=== PATIENT | male | born 1950 | race Caucasian/White ===

== ENCOUNTER 2018-08-27 06:38 | Day surgery (SDC) | payer MEDICARE ==
[2018-08-27] MEDS ORDERED: MIDAZOLAM HCL 2MG/2ML VIAL IV ONE (06:39)
[2018-08-27] MEDS ORDERED: LIDOCAINE 2% MDV (20MG/ML) 20ML VIAL IV ONE (06:39)
[2018-08-27] MEDS ORDERED: FENTANYL PF 100MCG/2ML VIAL IV ONE (06:39)
[2018-08-27] MEDS ORDERED: GLYCOPYRROLATE 0.2 MG/ML ML IV ONE (06:39)
[2018-08-27] MEDS ORDERED: PROPOFOL 10 MG/ML VIAL IV ONE (06:39)
[2018-08-27] MEDS ORDERED: ATROPINE SULFATE 0.4 MG/ML 20ML IVP ONE (06:39)
[2018-08-27] MEDS ORDERED: RINGERS SOLUTION,LACTATED 1,000 ML IV ONE (07:10)
[2018-08-27] MEDS ORDERED: DEXAMETHASONE PRESERVATIVE FREE 10MG/ML VIAL SQ ONE (08:16)
[2018-08-27] MEDS ORDERED: BUPIVACAINE 0.5% W/EPI MPF 30 ML VIAL SQ ONE (08:16)
[2018-08-27] MEDS ORDERED: LIDOCAINE 1% W/EPI 1:100,000 MDV 20 ML VIAL SQ ONE (08:16)
--- NOTE | 2018-08-29 13:40 | Operative Note ---
DATE OF SURGERY: 08/27/2018 PREOPERATIVE DIAGNOSIS: Cervical spondylosis without myelopathy, ICD10 code M47.812. OPERATION: Radiofrequency rhizotomy of bilateral cervical facets 5-6 and 6-7. INDICATIONS: This patient presents with primary neck pain. Examination showed diffuse tenderness of the cervical spine. Range of motion does cause pain in the neck with extension. Diagnostic studies showed a few small bulged discs, spondylosis with disc abnormalities at 4-5, 5-6, and 6-7. A previous facet series 75% pain control. Due to the failure of therapy, success of the facet series, the patient presents for rhizotomy for more long-term relief. Insurance authorization is for the 5-6, 6-7 levels bilateral. PROCEDURE: Intravenous line, vital sign monitoring, IV sedation by Anesthesia, Haider Brown. The patient positioned prone. Sterile prep, sterile technique. Cervical facets at 5-6 and 6-7 identified and marked. After the sterile prep, skin infiltrated. Two separate 20-gauge needles, one across each facet bilateral. Stimulation trial was conducted. Rhizotomy burn performed, 80 degrees, 90 seconds. Local with antiinflammatory to the sites. Topical antibiotic and sterile dressing applied. Will monitor and evaluate. CC: Hilary Hartman M.D. DOREEN
== END 2018-08-27 08:58 | disposition home or self-care (01) ==
LOC: SUR 06:38
PROVIDERS: ATTEND Pain Medicine Interventional Pain Medicine
DX: M47.812 Spondylosis without myelopathy or radiculopathy, cervical region (principal); I10 Essential (primary) hypertension; G20 Parkinson's disease; I48.91 Unspecified atrial fibrillation; Z79.01 Long term (current) use of anticoagulants; E78.00 Pure hypercholesterolemia, unspecified; H40.9 Unspecified glaucoma
CPT/HCPCS: 64633; 64634; 01936; J1100; J3010; J7120